=== PATIENT | male | born 2005 | race Caucasian/White ===

== ENCOUNTER 2023-06-14 09:26 | Day surgery (SDC) | payer BC ==
[~2023-06-14 09:26] MED LIST: Albuterol 0.083% 2.5 MG/3 ML Neb Soln NEB PRN; HYDROmorphone 1 MG/ML Syringe IVPUSH PRN; Metoclopramide 10 MG/2 ML SDV IVPUSH PRN; Morphine 2 MG/ML SYRINGE IVPUSH PRN; Naloxone 0.4 MG/ML SDV IVPUSH PRN; Ondansetron 4 MG/2 ML SDV IVPUSH PRN; droPERidol 5 MG/2 ML SDV IVPUSH PRN; fentaNYL 50 MCG/ML SDV IVPUSH PRN
[2023-06-14] MEDS: Lactated Ringers 1,000 ML IV SCH (10:07)
[2023-06-14] MEDS ORDERED: Bupivacaine 0.5% 30 ML SDV ONE (11:27)
[2023-06-14] MEDS ORDERED: fentaNYL 100 MCG/2 ML SDV ONE (12:08)
[2023-06-14] MEDS ORDERED: Propofol 200 MG/20 ML SDV ONE (12:08)
[2023-06-14] MEDS ORDERED: Lidocaine 2% 5 ML SDV ONE (12:08)
[2023-06-14] MEDS ORDERED: Dexamethasone 4 MG/ML 5 ML MDV ONE (12:08)
[2023-06-14] MEDS ORDERED: Ondansetron 4 MG/2 ML SDV ONE (12:08)
[2023-06-14] MEDS ORDERED: Ketorolac 30 MG/ML SDV ONE (12:08)
[2023-06-14] MEDS ORDERED: Acetaminophen/HYDROcodone 325-5 MG Tab PO PRN (13:44)
[2023-06-14] MEDS ORDERED: Lactated Ringers 1,000 ML IV SCH (13:45)
== END 2023-06-14 14:33 | disposition home or self-care (01) ==
LOC: MW.SDS 09:26
PROVIDERS: ATTEND Surgery
DX: N62 Hypertrophy of breast (principal); Z87.891 Personal history of nicotine dependence
CPT/HCPCS: 19120; J0131; J0665; J1100; J1885; J2405; J2704; J3010; J7120; 00400; J3490